=== PATIENT | female | born 1965 | race Hispanic/Latino ===

== ENCOUNTER 2019-01-10 01:49 | Emergency (ER) | payer BC ==
[~2019-01-10 01:49] MED LIST: BLAC200C4 PO; CHOL500050 PO; VITA1CAP85 PO
[2019-01-10 02:17] LABS: BASOPHILS % (AUTO) 0.7 % (0.0-5.0); HEMATOCRIT 33.4 % (36-48); MEAN CORPUSCULAR HEMOGLOBIN 31.3 pg (27.0-33.0); MEAN CORPUSCULAR HGB CONC 34.5 g/dL (32.0-36.0); MEAN CORPUSCULAR VOLUME 90.8 fL (79-99); MONOCYTES % (AUTO) 8.5 % (3.0-13.0); NEUTROPHILS % (AUTO) 42.8 % (40.0-77.0); NUCLEATED RED BLOOD CELLS 0.1 % (0.0-0.19); PLATELET COUNT (AUTO) 174 K/uL (130-400); RED BLOOD CELL COUNT(AUTO) 3.68 MIL/uL (4.00-5.50); RED CELL DISTRIBUTION WIDTH 12.6 % (11.0-15.5); WHITE BLOOD COUNT (AUTO) 5.3 K/uL (4.8-10.8)
[2019-01-10 02:23] LABS: CREATININE 0.9 mg/dL (0.5-1.5)
[2019-01-10 02:29] LABS: APPEARANCE,URINE Clear (CLEAR); BILIRUBIN,URINE Negative (NEGATIVE); COLOR,URINE Yellow (YELLOW); GLUCOSE, URINE (UA) Negative (NEGATIVE); KETONES,URINE Negative (NEGATIVE); LEUKOCYTE ESTERASE ,URINE Trace (NEGATIVE); NITRATE,URINE Negative (NEGATIVE); OCCULT BLOOD,URINE Negative (NEGATIVE); PH,URINE 6.5 (5.0-8.0); PROTEIN,URINE Negative (NEGATIVE); UROBILINOGEN,URINE 0.2 mg/dL (0.2-1.0)
[2019-01-10 02:48] LABS: BACTERIA,URINE Rare /HPF (None Seen); MUCUS,URINE Few LPF (None Seen); RBC,URINE 0-1 /HPF (0-1); SQUAMOUS EPITHELIAL CELL,UR Moderate /HPF (0-2)
[2019-01-10] MEDS ORDERED: MORPHINE SULFATE 4 MG/1ML SYG ONE (03:22)
[2019-01-10] MEDS ORDERED: ONDANSETRON HCL 4 MG/2 ML VIAL ONE (03:22)
[2019-01-10] MEDS ORDERED: KETOROLAC TROMETHAMINE 30MG/ML ONE (03:56)
[2019-01-10] MEDS ORDERED: ORPHENADRINE CITRATE 30 MG/ML ML ONE (06:15)
== END 2019-01-10 06:59 | disposition home or self-care (01) ==
LOC: EDH 01:49
DX: M62.830 Muscle spasm of back (principal); Z98.890 Other specified postprocedural states; Z88.2 Allergy status to sulfonamides
CPT/HCPCS: 36415; 74176; 80048; 81001; 85025; 96374; 96375; 99285; J1885; J2270; J2360; J2405

== ENCOUNTER → 2021-05-23 | Outpatient (CLI) | payer BC | END | disposition home or self-care (01) | LOC: RAH 10:58 | PROVIDERS: ATTEND Physician Assistant Medical | DX: Z12.31 Encounter for screening mammogram for malignant neoplasm of breast (principal) | CPT/HCPCS: 77067 ==